=== PATIENT | female | born 1990 | race African-American/Black ===

== ENCOUNTER 2018-03-13 22:49 | Emergency (ER) | payer MEDICAID ==
[~2018-03-13] VITALS: Ht 175.3 cm; Wt 63.0 kg
[2018-03-13 23:27] VITALS: BP 120/79
== END 2018-03-14 03:55 | disposition left against medical advice (07) ==
LOC: ER 22:49
DX: Z53.21 Procedure and treatment not carried out due to patient leaving prior to being seen by health care provider (principal)

== ENCOUNTER 2018-03-15 09:05 | Emergency (ER) | payer MEDICAID ==
[~2018-03-15] VITALS: Ht 172.7 cm; Wt 70.0 kg
[2018-03-15] MEDS ORDERED: SODIUM CHLORIDE 0.9% 1,000 ML IV ONE (10:05)
[2018-03-15 10:28] LABS: HEMATOCRIT. 31.8 % (36.0-48.0); HEMOGLOBIN. 10.6 g/dL (12.0-16.0); MEAN CORPUSCULAR HEMOGLOBIN 29.1 pg (28.0-32.0); MEAN CORPUSCULAR VOLUME 87.2 fL (81.0-99.0); MEAN PLATELET VOLUME 8.4 fl (7.4-10.4); PLATELET 171 x1000/uL (130-400); RED BLOOD CELL COUNT 3.64 mill/uL (4.2-5.4); RED CELL DISTRIBUTION WIDTH 13.8 % (11.6-14.6)
[2018-03-15 10:37] LABS: INR 1.1; PARTIAL THROMBOPLASTIN TIME 24.1 sec (23.4-31.0); PROTHROMBIN TIME 11.1 sec (9.4-11.6)
[2018-03-15 10:39] LABS: HCG SCREEN POSITIVE
[2018-03-15 10:55] LABS: PLATELET ESTIMATE NORMAL
[2018-03-15 11:57] LABS: CHLORIDE 108 mEq/L (98-107)
[2018-03-15 12:23] LABS: CLARITY URINE CLEAR (CLEAR); COLOR URINE ORANGE (YELLOW); KETONES URINE 2+ (NEGATIVE); LEUKOCYTE ESTERASE URINE 1+ (NEGATIVE); NITRITE URINE NEGATIVE (NEGATIVE); OCCULT BLOOD URINE 3+ (NEGATIVE); PH URINE 7.5 (4.5-8.0); PROTEIN URINE NEGATIVE (NEGATIVE); SPECIFIC GRAVITY URINE 1.015 (1.005-1.030); UROBILINOGEN URINE 0.2 E.U./dL (0.2-1.0)
[2018-03-15 13:12] LABS: *AMPHETAMINES SCREEN URINE NEGATIVE (NEGATIVE); *BARBITURATES SCREEN URINE NEGATIVE (NEGATIVE); *BENZODIAZEPINES SCREEN URINE NEGATIVE (NEGATIVE); *COCAINE SCREEN URINE NEGATIVE (NEGATIVE); METHADONE URINE SCREEN NEGATIVE (NEGATIVE); OPIATES URINE SCREEN NEGATIVE (NEGATIVE); PHENCYCLIDINE URINE SCREEN NEGATIVE (NEGATIVE)
[2018-03-15 13:13] LABS: CANNABINOID URINE SCREEN NEGATIVE (NEGATIVE)
[2018-03-15] MEDS ORDERED: KETOROLAC 30MG/ML VIAL IV ONE (14:00)
[2018-03-15 14:04] VITALS: BP 102/68
== END 2018-03-15 15:31 | disposition home or self-care (01) ==
LOC: ER 09:38
DX: O02.1 Missed abortion (principal); N39.0 Urinary tract infection, site not specified; R10.2 Pelvic and perineal pain
CPT/HCPCS: 36415; 76801; 76817; 80048; 80305; 81003; 84702; 84703; 85025; 85610; 85730; 86850; 86870; 86900; 86901; 96374; 99285; J1885; J7030